=== PATIENT | female | born 1945 | race Caucasian/White ===

== ENCOUNTER 2017-10-17 09:48 | Day surgery (SDC) | payer OTHER, BC ==
[2017-10-17] MEDS ORDERED: LIDOCAINE 2% MPF 5 ML VIAL ONE (11:45)
[2017-10-17] MEDS ORDERED: BUPIVACAINE 0.25% PF 10 ML VIAL ONE (11:45)
[2017-10-17] MEDS ORDERED: NA CHLORIDE 0.9% 500 ML ONE (11:45)
[2017-10-17] MEDS ORDERED: CYCLOPENTOLATE 1% OPTH 2 ML ONE (11:45)
[2017-10-17] MEDS ORDERED: TETRACAINE HCL 0.5% 2ML OPTH ONE (11:45)
[2017-10-17] MEDS ORDERED: PHENYLEPHRINE 10% OPTH 5ML ONE (11:46)
[2017-10-17] MEDS ORDERED: PHENYLEPHRINE 10% OPTH 5ML OPTH ONE ×2 (12:00→12:05)
[2017-10-17] MEDS ORDERED: CYCLOPENTOLATE 1% OPTH 2 ML OPTH ONE ×2 (12:00→12:05)
[2017-10-17] MEDS ORDERED: BALANCED SALT IRRIG PLAIN 500 ML BTL IRR ONE ×2 (13:00→13:21)
[2017-10-17] MEDS ORDERED: MOXIFLOXACIN HCL 10 DROPS/ML **OR USE OPTH ONE (13:01)
[2017-10-17] MEDS ORDERED: DUOVISC 1 KIT OPTH ONE (13:02)
--- NOTE | 2017-10-17 13:25 | P.BOP ---
Preoperative diagnosis: Nuclear sclerotic cataract OD Postoperative diagnosis: Same Primary procedure: Phacoemulsification with IOL OD Estimated blood loss: None Anesthesia: Local (Subtenon's infusion with anesthesia for cataract surgery) Complications: None Implants: SN60WF +22.0 Transferred to: Other (Day surgery) Condition: Good
[2017-10-17] MEDS: EPINEPHRINE/PF 1 MG/ML AMP ONE ×2 (13:26→13:27)
--- NOTE | 2017-10-18 00:12 | OP ---
Date of Procedure: 10/17/2017 Surgeon: Stefany Garcia MD Anesthesiologist: 1. Marlen Peña CRNA. 2. Howard Nur M.D. Preoperative Diagnosis: Nuclear sclerotic cataract, OD (right eye). Operation Performed: Phacoemulsification with intraocular lens implant, OD (right eye). Anesthesia: Per cataract surgery. Complications: Description Of Procedure: In day surgery, the patient was prepped with Betadine and draped. A conju nctival incision was made in the inferior nasal quadrant with Katelin scissors. A sub-Tenon block c onsisting of a 1:1 mixture of 2% Xylocaine and 0.25% bupivacaine was placed through the conjunctival incision with a blunt cannula. A Honan balloon was placed over the eye and the patient was transferr ed to the operating room. In the operating room the patient was prepped and draped in the usual sterile fashion for ophthalmic surgery. A lid speculum was placed in the OD. Two paracentesis sites were made superiorly and infer iorly in the limbal cornea. Viscoat was placed in the anterior chamber and a crescent blade was used to make a corneal groove and tunnel, and a keratome was used to enter the anterior chamber. Provisc was placed in the anterior chamber and a 360 degree capsulotomy was performed with a cystitome. The lens was hydrodissected with BSS and rotated freely. The lens was removed with a stop and chop tech nique. A 11.05 phaco CDE was used to remove the lens. Residual cortex was removed with the irrigati on and aspiration. Provisc was placed in the capsular bag. SN60WF +22.0 diopter lens was placed in the capsular bag without complications. Irrigation and aspiration was used to remove residual viscoe lastic. The paracentesis sites were hydrated with BSS. The wound and paracentesis sites were inspec victoriano and found to be watertight. Vigamox 0.07 cc was placed intracamerally at the end of the procedur e. The eye was irrigated with balanced salt solution. The eye was patched with a soft cotton patch and Lucas metal shield. The patient was returned to day surgery in good condition. Comments: 1:5000 epinephrine was placed in the anterior chamber prior to Viscoat and a scleral incis ion was created. Discharge Instructions: Ms. Nwe is discharged to home in good condition and is to follow up with Dr. Garcia in the morning. JOSE/JAMMIE Voice ID: [id number] Report ID: [id number]
== END 2017-10-17 14:00 | disposition home or self-care (01) ==
LOC: OR 09:48
PROVIDERS: ATTEND Ophthalmology Retina Specialist
PROC: 08RJ3JZ Replacement of Right Lens with Synthetic Substitute, Percutaneous Approach (ICD-10-PCS; principal; 2017-10-17 11:30)
DX: H25.11 Age-related nuclear cataract, right eye (principal); H40.053 Ocular hypertension, bilateral; H35.30 Unspecified macular degeneration; E11.319 Type 2 diabetes mellitus with unspecified diabetic retinopathy without macular edema; I10 Essential (primary) hypertension; E78.00 Pure hypercholesterolemia, unspecified; J45.909 Unspecified asthma, uncomplicated; Z91.040 Latex allergy status; Z88.3 Allergy status to other anti-infective agents; Z98.51 Tubal ligation status; Z83.3 Family history of diabetes mellitus; Z80.9 Family history of malignant neoplasm, unspecified
CPT/HCPCS: 66984; 82962; J0171; V2630